=== PATIENT | male | born 1970 ===

== ENCOUNTER 2016-05-16 18:56 | Emergency (ER) | payer OTHER ==
[~2016-05-16] VITALS: Ht 170.2 cm; Wt 84.3 kg
[2016-05-16 18:59] VITALS: TEMP 36.7; O2SAT 94; Ht 170.2 cm; Wt 84.3 kg
[2016-05-16] MEDS ORDERED: MAGIC1 PO (19:28)
[2016-05-16] MEDS ORDERED: CHOLMIS5 PO (19:28)
[2016-05-16] MEDS ORDERED: NORCO 5/325MG HOME PACK PO ONE (20:30)
[2016-05-16] MEDS ORDERED: HYDR-5688 PO (20:49)
[2016-05-16] MEDS ORDERED: PRED20TA2 PO (20:49)
--- NOTE | 2016-05-16 20:51 | EMERGENCY ROOM VISIT NOTE ---
History First contact with patient: 19:20 Chief Complaint: SORETHROAT Stated Complaint: SORE THROAT History of Present Illness The patient is a 45 year old male who presents to the Emergency Room with complaints of a sore throat for the past 4 days. Patient does not speak much Pal[place]an and history is given by the patient's daughter, who serves as a dust collector. The patient reports that he has had a sore throat which is worse with swallowing. He was seen twice at urgent care and had negative strep testing. He was given Magic's was alert and has been using this with little relief. The patient reports continued sore throat. He denies fevers, neck pain /stiffness, headache, cough, nausea, vomiting. Review of Systems A complete 10-point Review of Systems was discussed with the patient, with pertinent positives and negatives listed in the History of Present Illness. All remaining Review of Systems questions can be considered negative unless otherwise specified. Social History Smoking Status: Never Smoker Alcohol Use: none Drug Use: none Marital Status: Housing Status: lives with family Occupation Status: employed Current/Historical Medications Scheduled Cholesterol (Cholesterol), 1 TAB PO DAILY Diphenhy/Alum/Mag/Sucralfa (Magic Swizzle - Diphenhy/Alum/Mag/Sucralfa), 30 ML PO QID Prednisone (Prednisone Tab), 3 TAB PO DAILY Scheduled PRN Hydrocodone/Acetaminophen 5MG/325MG (Saco 5MG/325MG), 1-2 TABLET PO Q4H PRN for Pain Allergies Coded Allergies: No Known Allergies (Unverified , 05/16/16) Physical Exam Vital Signs Date Time Temp Pulse Resp B/P Pulse Ox O2 Delivery O2 Flow Rate FiO2 05/16/16 21:07 72 18 126/91 Room Air 05/16/16 18:59 36.7 76 18 136/85 95 Room Air 05/16/16 18:59 94 Room Air Physical Exam VITALS: Vitals are noted on the nurse's note and reviewed by myself. Vital signs stable. GENERAL: This is a 45-year-old male, in no acute distress, nondiaphoretic, well- developed well-nourished. SKIN: The skin was without rashes. EARS: External auditory canals clear, tympanic membranes pearly springer without erythema or effusion bilaterally. EYES: Pupils equal round and reactive to light and accommodation. Conjunctivae without injection, sclerae without icterus. Extraocular movements intact. NOSE: Patent, turbinates without inflammation or discharge. No sinus tenderness. MOUTH: Mucous membranes moist. Tonsils are not enlarged. Pharynx mildly erythematous. No exudate. NECK: Supple without nuchal rigidity. No lymphadenopathy. HEART: Regular rate and rhythm without murmurs gallops or rubs. LUNGS: Clear to auscultation bilaterally without wheezes, rales or rhonchi. ABDOMEN: Soft, nontender. NEURO: Patient was alert and oriented to person place and time. Medical Decision & Procedures Laboratory Results Test 05/16/16 19:35 Monoscreen NEG (NEG) Medications Administered Medications (Trade) Dose Ordered Sig/Judd Route Start Time Stop Time Status Last Admin Dose Admin Prednisone (PredniSONE TAB) 60 mg NOW STAT PO 05/16/16 20:26 05/16/16 20:27 DC 05/16/16 20:57 60 MG Acetaminophen/ Hydrocodone Bitart (Saco 5/325mg Home Pack) 1 homepack UD ONCE PO 05/16/16 20:30 05/16/16 20:31 DC 05/16/16 20:57 1 HOMEPACK Medical Decision Differential diagnosis includes strep pharyngitis, viral pharyngitis, mononucleosis, among others. The patient was evaluated as above. His exam is unremarkable. Strep swab was obtained and was negative. Culture pending. Monospot was performed and was also negative. The patient was given 60 mg prednisone orally. He will be placed on a four-day course of prednisone to reduce inflammation. He was given Saco to be used as needed for pain. He was instructed to follow-up with his primary care provider as needed. [place] Drug Monitoring Program Search Results: patient reviewed within database, no issues identified Impression Primary Impression: Sore throat Departure Information Dispostion Home / Self-Care Condition GOOD Prescriptions Hydrocodone/Acetaminophen 5MG/325MG (Saco 5MG/325MG) Tab 1-2 TABLET PO Q4H Y for Pain, #10 TAB For Initial Treatment Prov: Teena La PA-C 05/16/16 Prednisone (Prednisone Tab) 20 Mg Tab 3 TAB PO DAILY for 4 Days, #12 TAB FOR 4 DAYS Prov: Teena La PA-C 05/16/16 Referrals Lee Khalil, D.OJusto (PCP) Patient Instructions My [facility] Additional Instructions You were seen in the emergency department for your sore throat. The results of your rapid strep screen were found to be negative. You will be contacted in 48- 72 hrs with the results of your pending strep culture if it is positive. If you do not receive a call, you may call to check on the results in 2-3 days. Take the prednisone as prescribed. You have been prescribed Saco to be used for pain control. Take 1-2 tablets every 4-6 hours as needed for pain. This is a narcotic medication. You cannot drive or consume alcohol while on this medicine. This medicine should only be used for pain that cannot be controlled with [id number] pain medicines. For pain and fever control, you can use the following [id number] medicines (if >12 yo): - Regular strength (325mg/tab) Tylenol (acetaminophen) 2 tabs every 4-6 hours as needed. Do not exceed 12 tablets in a 24 hour period. Avoid taking more than 4 grams (4000 mg) of Tylenol per day. This includes any other sources of acetaminophen you may take on a regular basis. - Regular strength (200 mg/tab) Advil (ibuprofen) 1-2 tabs every 4-6 hours as needed. Do not exceed a dose of 3200 mg per day. - For best results, alternate dosing of Tylenol and Advil. In addition to your prescribed medications, you can also use the following home remedies: - Warm salt-water gargles 3 times per day can soothe your throat and help to fight infection. - Warm tea with honey can soothe your throat. Return to the emergency department if your symptoms persist or worsen over the next 2-3 days despite treatment course outlined above. Return to the emergency department if you develop the following symptoms of: inability to swallow solids , liquids, or drool; excessive wheezing or inability to catch your breath; or intractable fever or pain. Follow up with your primary care provider in 2-3 days from today's emergency department visit.
[2016-05-16 21:07] VITALS: BP 126/91; PULSE 72
== END 2016-05-16 21:09 | disposition home or self-care (01) ==
LOC: C.EDB 18:57 → C.EDD 21:09
DX: J02.9 Acute pharyngitis, unspecified (principal)